=== PATIENT | male | born 2000 | race Caucasian/White ===

== ENCOUNTER 2021-02-13 11:36 | Emergency (ER) | payer OTHER, SELFPAY ==
[2021-02-13 11:51] VITALS: BP 158/78; PULSE 105; RESP 18; TEMP 36.9; O2SAT 98; BMI 23.6
--- NOTE | 2021-02-13 12:23 | XR_ITS ---
WS: [id number] RIGHT FOOT: 3 VIEW(S) TECHNIQUE: AP, oblique and lateral. HISTORY: foot pain COMPARISON: None available. No acute fracture or dislocation. Normal tarsal/metatarsal alignment. No soft tissue abnormality or bone destruction. XR/XR foot RT min 3V* [id number] IMPRESSION: Normal RIGHT foot.
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
[2021-02-13] MEDS: ibuprofen 600 mg Tablet PO (13:17)
== END 2021-02-13 13:23 | disposition home or self-care (01) ==
PROVIDERS: Emergency Provider Nurse Practitioner Family
DX: S96.911A Strain of unspecified muscle and tendon at ankle and foot level, right foot, initial encounter (principal); X50.1XXA Overexertion from prolonged static or awkward postures, initial encounter
CPT/HCPCS: 73630; 99283

== ENCOUNTER 2021-07-07 12:18 | Emergency (ER) | payer OTHER, SELFPAY ==
--- NOTE | 2021-07-07 12:19 | CT_ITS ---
WS: [id number] CT HEAD TECHNIQUE: Noncontrast CT of the head obtained from the skullbase to the vertex. CLINICAL INFORMATION: head injury COMPARISON: None. DLP: 968.[address] scans at [facility] use at least one of these dose optimization techniques: automat ed exposure control; mA and/or kV adjustment per patient size (includes targeted exams where dose is matched to clinical indication); or iterative reconstruction. FINDINGS: No evidence of intracranial hemorrhage or mass effect. Ventricular system and basal cisterns are holt nt. Normal corral-white differentiation. Benign right middle cranial fossa arachnoid cyst measuring 3.7 x 1.5 cm. Paranasal sinuses and mastoid air cells are well aerated. .Normal visualized soft tissues. CT/CT head wo con* [id number] IMPRESSION: 1. No evidence of intracranial hemorrhage or mass effect. 2. Normal corral-white differentiation. 3. Benign right middle cranial fossa arachnoid cyst described above. 4. No acute intracranial findings.
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
[2021-07-07 12:59] VITALS: BP 124/77; PULSE 91; RESP 18; TEMP 36.8; O2SAT 96; BMI 23.1
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
[2021-07-07] MEDS: acetaminophen 500 mg Tablet 1000 MG PO (13:47)
== END 2021-07-07 14:02 | disposition home or self-care (01) ==
PROVIDERS: Emergency Provider Physician Assistant
DX: G44.319 Acute post-traumatic headache, not intractable (principal)
CPT/HCPCS: 70450; 72125; 99283

== ENCOUNTER 2021-11-18 21:37 | Outpatient (CLI) | payer BC, SELFPAY ==
[2021-11-18 22:44] LABS: SARS Covid-2 Antigen Negative (Negative)
== END 2021-11-18 21:38 | disposition home or self-care (01) ==
PROVIDERS: Visit Provider Physician Assistant
DX: Z20.822 Contact with and (suspected) exposure to COVID-19 (principal)
CPT/HCPCS: 87426

== ENCOUNTER 2022-11-19 14:30 | Emergency (ER) | payer OTHER, SELFPAY ==
[2022-11-19 14:44] VITALS: BP 125/74; PULSE 134; RESP 20; O2SAT 96; BMI 23.7
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
[2022-11-19 16:36] VITALS: BP 119/78; PULSE 101; RESP 16; O2SAT 98
--- NOTE | 2022-11-19 18:36 | PC.NURSE ---
pts lung sounds were clear and present throughout
== END 2022-11-19 16:40 | disposition home or self-care (01) ==
PROVIDERS: Emergency Provider Family Medicine
DX: S09.93XA Unspecified injury of face, initial encounter (principal); Y04.2XXA Assault by strike against or bumped into by another person, initial encounter; Y92.239 Unspecified place in hospital as the place of occurrence of the external cause; Y99.0 Civilian activity done for income or pay
CPT/HCPCS: 70450; 70486; 72125; 99284

== ENCOUNTER 2024-03-20 11:18 | Emergency (ER) | payer BC, SELFPAY ==
[2024-03-20] VITALS (26 sets, daily range): BP systolic 126–153; BP diastolic 68–97; PULSE 77–119; RESP 11–23; TEMP 36.8; O2SAT 96–100; BMI 23.7
--- NOTE | 2024-03-20 11:31 | ECG_ITS ---
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 Measurements Intervals [place] Rate: 91 P: 80 CT: 137 QRS: 86 QRSD: 82 T: 76 QT: 327 QTc: 404 Interpretive Statements SINUS RHYTHM No previous ECG available for comparison Electronically Signed On 03-20-2024 23:22:45 CDT by Oscar Martinez M.D. [id number]
--- NOTE | 2024-03-20 11:48 | PC.PHAR ---
pt states takes no prescription medications-pt states was taking sudafed pe but states not taken for 5 to 7 days
[2024-03-20] MEDS: sodium chloride 0.9% 1,000 ML 999 ML IV ×2 (11:56→13:04)
[2024-03-20 12:15] LABS: Basophils % 0.3 %; Eosinophils % 0.1 %; Hematocrit 42.9 % (37-53); Lymphocytes # 1.1 10^3/uL (0.8-4.8); Lymphocytes % 7.9 %; Mean Corpuscular Hemoglobin 30.6 pg (27-33); Mean Corpuscular Volume 87.6 fl (82-101); Mean Platelet Volume 9.1 fL (7.4-10.4); Monocytes # 0.8 10^3/uL (0.2-0.9); Monocytes % 5.3 %; Neutrophils # 12.21 10^3/uL (1.8-7.7); Neutrophils % 85.7 %; Nucleated Red Blood Cells % 0 %; Platelet Count 334 10^3/cmm (157-399); Red Cell Distribution Width 12.8 % (12.1-15.1); White Blood Count 14.26 10^3/uL (3.29-11.43)
[2024-03-20 12:31] LABS: Alanine Aminotransferase 33 U/L (0-41); Albumin Level 4.4 g/dL (3.5-5.2); Alkaline Phosphatase 99 U/L (40-130); Anion Gap 14.5 (5-19); Aspartate Amino Transferase 22 U/L (0-40); Blood Urea Nitrogen 10 mg/dL (6-20); Calcium 9.1 mg/dL (8.5-10.5); Carbon Dioxide 25 mmol/L (22-29); Chloride 102 mmol/L (98-107); Creatinine Clr Calc Pharmacy 138.9789; Globulin 2.9 g/dL (1.3-4.6); Glomerular Filtration Rate 102.8 mL/min (90-130); Glucose 105 mg/dL (65-115); Osmolality Calculated 285 mOsm/kg (285-295); Potassium 3.5 mmol/L (3.5-5.1); Sodium 138 mmol/L (136-145); Total Bilirubin 0.4 mg/dL (0.15-1.2); Total Protein 7.3 g/dL (6.6-8.7)
[2024-03-20 12:31] LABS: Add Urine Microscopic? NO; Charge for UA Resulting for Rev
--- NOTE | 2024-03-20 12:45 | W.ED.SYNCOPE ---
HPI - Syncope General: Chief Complaint: Syncope Stated Complaint: SYNCOPAL EPISODE Time Seen by Provider: 03/20/24 11:24 History of Present Illness: 23-year-old male presents to the emergency room with complaints of a syncopal episode that occurred while he was exerting himself. 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 He denies any chest pain. He states had similar episodes in the past where he is passed out. [facility] ED PFSH: Medical History (Updated 03/20/24 @ 12:47 by Solomon Mcclain DO) Healthy adult Surgical History (Updated 11/22/22 @ 08:08 by Solomon Mcclain DO) No significant past surgical history Course Vital Signs: Vital signs: Vital Signs Temperature 98.3 F 03/20/24 11:21 Pulse Rate 89 03/20/24 13:55 Respiratory Rate 19 H 03/20/24 13:55 Blood Pressure 134/82 03/20/24 14:00 Pulse Oximetry 100 03/20/24 13:55 Oxygen Delivery Me thod Room Air 03/20/24 13:40 MDM - Syncope Medical Decision Making Patient feeling better after IV fluids laboratory test unremarkable little leukocytosis suspect is demargination from his syncopal episode. Patient has had similar episodes in the past. Discharge patient home and follow-up with primary care doctor return if is other symptoms. If he has recurrent episodes for this he should see his primary care doctor for further evaluation as an outpatient. Medical Records I reviewed the patient's medical records. Lab Data I reviewed the patient's lab results. 03/20/24 11:40 03/20/24 11:40 Laboratory Results WBC 14.26 10^3/uL (3.29-11.43) H 03/20/24 11:40 RBC 4.90 10^6/uL (3.85-5.65) 03/20/24 11:40 Hgb 15.00 g/dL (11.27-16.99) 03/20/24 11:40 Hct 42.9 % (37-53) 03/20/24 11:40 MCV 87.6 fl (82-101) 03/20/24 11:40 MCH 30.6 pg (27-33) 03/20/24 11:40 MCHC 35.0 g/dL (30-55) 03/20/24 11:40 RDW 12.8 % (12.1-15.1) 03/20/24 11:40 Plt Count 334 10^3/cmm (157-399) 03/20/24 11:40 MPV 9.1 fL (7.4-10.4) 03/20/24 11:40 Neut % (Auto) 85.7 % 03/20/24 11:40 Lymph % (Auto) 7.9 % 03/20/24 11:40 [place] % (Auto) 5.3 % 03/20/24 11:40 Eos % (Auto) 0.1 % 03/20/24 11:40 Baso % (Auto) 0.3 % 03/20/24 11:40 Neut # (Auto) 12.21 10^3/uL (1.8-7.7) H 03/20/24 11:40 Lymph # (Auto) 1.1 10^3/uL (0.8-4.8) 03/20/24 11:40 Traill # (Auto) 0.8 10^3/uL (0.2-0.9) 03/20/24 11:40 Eos # (Auto) 0.0 10^3/uL (0.0-0.8) 03/20/24 11:40 Baso # (Auto) 0.0 10^3/uL (0.0-0.1) 03/20/24 11:40 Nucleated RBC % (auto) 0 % 03/20/24 11:40 Nucleated RBCs # 0.0 /100WBC 03/20/24 11:40 Sodium 138 mmol/L (136-145) 03/20/24 11:40 Potassium 3.5 mmol/L (3.5-5.1) 03/20/24 11:40 Chloride 102 mmol/L (98-107) 03/20/24 11:40 Carbon Dioxide 25 mmol/L (22-29) 03/20/24 11:40 Anion Gap 14.5 (5-19) 03/20/24 11:40 BUN 10 mg/dL (6-20) 03/20/24 11:40 Creatinine 0.9 mg/dL (0.7-1.2) 03/20/24 11:40 GFR Calculation 102.8 mL/min (90-130) 03/20/24 11:40 Glucose 105 mg/dL (65-115) 03/20/24 11:40 Calculated Osmolality 285 mOsm/kg (285-295) 03/20/24 11:40 Calcium 9.1 mg/dL (8.5-10.5) 03/20/24 11:40 Total Bilirubin 0.4 mg/dL (0.15-1.2) 03/20/24 11:40 AST 22 U/L (0-40) 03/20/24 11:40 ALT 33 U/L (0-41) 03/20/24 11:40 Alkaline Phosphatase 99 U/L (40-130) 03/20/24 11:40 Total Protein 7.3 g/dL (6.6-8.7) 03/20/24 11:40 Albumin 4.4 g/dL (3.5-5.2) 03/20/24 11:40 Globulin 2.9 g/dL (1.3-4.6) 03/20/24 11:40 Urine Color Yellow (Yellow) 03/20/24 12:15 Urine Appearance Clear (CLEAR) 03/20/24 12:15 Urine pH 6 (5-7) 03/20/24 12:15 Ur Specific [place] 1.015 (1.005-1.030) 03/20/24 12:15 Urine Protein Neg (Negative) 03/20/24 12:15 Urine Glucose (UA) Norm (Normal) 03/20/24 12:15 Urine Ketones 1+ (Negative) H 03/20/24 12:15 Urine Blood Neg (Negative) 03/20/24 12:15 Urine Nitrate Negative (Negative) 03/20/24 12:15 Urine Bilirubin Neg (Negative) 03/20/24 12:15 Urine Urobilinogen Norm mg/dL (Negative) 03/20/24 12:15 Ur Leukocyte Esterase Negative (Negative) 03/20/24 12:15 No radiology studies performed this visit Discharge Plan Discharge Patient Disposition: Home Clinical Impression: Syncope due to orthostatic hypotension Condition: Stable Prescriptions: No Action No Known Home Medications Discharge Orders: Discharge ED (Routine); Ordered 03/20/24 Ordered By: Solomon Mcclain Discharge Diet: Usual diet Patient Instructions: Syncope (ED), Opioid Safety, Pain Management Activity Restrictions/Additional Instructions: Thank you for choosing [facility] for your healthcare needs today. Please realize this is an emergency room and that we are providing you with a medical screening exam and this may not be complete and all inclusive of all the testing and or work up that you may need to determine your ailment or severity of your illness. It is very important that you follow up as instructed or that you return to the Emergency Department should you have concerns or if your condition changes or worsens in any way. Coding Level of Care Code ED A&P Mechanic for Ruiz Jaeger
[2024-03-20 12:57] LABS: Bilirubin Urine Neg (Negative); Blood Urine Neg (Negative); Glucose Urine UA Norm (Normal); Ketones Urine 1+ (Negative); Leukocyte Esterase Urine Negative (Negative); Nitrate Urine Negative (Negative); Protein Urine Neg (Negative); Specific Gravity, Urine 1.015 (1.005-1.030); Urine Appearance Clear (CLEAR); Urine Color Yellow (Yellow); Urobilinogen Urine Norm (Negative); pH Urine 6 (5-7)
== END 2024-03-20 14:05 | disposition home or self-care (01) ==
PROVIDERS: Emergency Provider Family Medicine
DX: I95.1 Orthostatic hypotension (principal)
CPT/HCPCS: 80053; 81003; 85025; 93005; 96360; 99284; J7030

== ENCOUNTER 2024-10-10 16:22 | Emergency (ER) | payer OTHER, SELFPAY ==
[2024-10-10 16:27] VITALS: BP 140/100; PULSE 113; O2SAT 100; BMI 24.4
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
[2024-10-10 16:36] VITALS: TEMP 36.8
[2024-10-10] MEDS: naproxen 500 mg Tablet PO (16:42)
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
[2024-10-10 16:56] VITALS: BP 161/90; PULSE 108; O2SAT 99
== END 2024-10-10 16:57 | disposition home or self-care (01) ==
PROVIDERS: Emergency Provider Emergency Medicine
DX: S13.4XXA Sprain of ligaments of cervical spine, initial encounter (principal); V89.2XXA Person injured in unspecified motor-vehicle accident, traffic, initial encounter
CPT/HCPCS: 73030; 99283